=== PATIENT | female | born 1975 | race Caucasian/White ===

== ENCOUNTER 2023-04-02 09:23 | Outpatient (CLI) | payer OTHER, SELFPAY | END 2023-04-02 09:24 | disposition home or self-care (01) | PROVIDERS: PCP Physician Assistant Medical; Referring Provider Physician Assistant Medical; Visit Provider Physician Assistant Medical | DX: R03.0 Elevated blood-pressure reading, without diagnosis of hypertension (principal); R79.89 Other specified abnormal findings of blood chemistry | CPT/HCPCS: 80053; 82088; 84244; 84439; 84443 ==

== ENCOUNTER 2023-04-06 08:16 | Outpatient (CLI) | payer OTHER, SELFPAY | END 2023-04-06 08:17 | disposition home or self-care (01) | LOC: NFLDREF 04-10 09:01 | PROVIDERS: PCP Physician Assistant Medical; Referring Provider Physician Assistant Medical; Visit Provider Physician Assistant Medical | DX: R03.0 Elevated blood-pressure reading, without diagnosis of hypertension (principal); R79.89 Other specified abnormal findings of blood chemistry | CPT/HCPCS: 84244 ==

== ENCOUNTER 2023-04-09 13:50 | Outpatient (CLI) | payer OTHER, SELFPAY ==
--- NOTE | 2023-04-09 14:00 | CRLHL7_ITS ---
For Patients: As a result of the Century Cures Act, medical imaging exams and procedure reports are released immediately into your electronic medical record. You may view this report before your referring provider. If you have questions, please contact your health care provider. INDICATION: HYPERTENSION TECHNIQUE: Grayscale, color Doppler and power Doppler ultrasound of the kidneys and renal arteries performed. COMPARISON: None available FINDINGS: BILATERAL RENAL ARTERY DUPLEX ULTRASOUND ABDOMINAL AORTA: Peak systolic velocity = 144 cm/s. No aortic aneurysm. RIGHT KIDNEY: 9.2 cm in length. There is no hydronephrosis. Peak systolic velocity = 130 cm/second Renal artery to aortic peak systolic velocity ratio = 1.1 Resistive indices: 0.6-0.7 Renal vein = patent LEFT KIDNEY: 10.8 cm in length. There is no hydronephrosis. Peak systolic velocity = 140 cm/second Renal artery to aortic peak systolic velocity ratio = 1.0 Resistive indices: 0.6 Renal vein = patent IMPRESSION: No evidence of significant renal artery stenosis. Dictated by Salty Lloyd MD @ 04/09/2023 4:39:00 PM (Electronically Signed)
== END 2023-04-09 13:51 | disposition home or self-care (01) ==
LOC: US 13:50
PROVIDERS: PCP Physician Assistant Medical; Visit Provider Physician Assistant Medical
DX: I10 Essential (primary) hypertension (principal); R03.0 Elevated blood-pressure reading, without diagnosis of hypertension; R79.89 Other specified abnormal findings of blood chemistry
CPT/HCPCS: 76775; 93975

== ENCOUNTER 2023-07-05 19:31 | Outpatient (CLI) | payer OTHER, SELFPAY ==
--- NOTE | 2023-07-13 09:41 | W.PM.SLEEP ---
Sleep Study Details Details Interpreting Provider: Gaye Date of Sleep Study: 07/05/23 Sleep Study Details: STUDY TYPE:? Home unattended ? BMI:? 25.8 ORDERING PROVIDER:Bhavna Sierra INDICATION:? Concerns about sleep apnea ? SLEEP SUMMARY:? 508.5 minutes monitored RESPIRATORY SUMMARY:? AHI 25.5 Supine AHI 28.7, left lateral 12.2 Low oxygen 82 0.9% of study oxygen less than 90% Snoring 0.3% PERIODIC LIMB MOVEMENTS OF SLEEP:? Not CARDIAC:? Recorded during home study range 46-111, mean 67.1 beats per minute IMPRESSION:? Moderate obstructive sleep apnea with supine position dependency RECOMMENDATION: Treatment options include CPAP AutoSet 4-17, dental appliance and/or airway expansion surgery.
== END 2023-07-05 19:32 | disposition home or self-care (01) ==
LOC: SLEEP 19:33
PROVIDERS: PCP Physician Assistant Medical; Visit Provider Physician Assistant Medical
DX: G47.33 Obstructive sleep apnea (adult) (pediatric) (principal)
CPT/HCPCS: 95806

== ENCOUNTER 2024-08-21 07:41 | Outpatient (CLI) | payer OTHER, SELFPAY ==
--- NOTE | 2024-08-21 09:45 | W.ANESCHARGE ---
Anesthesia Charges Start Date/Time Anesthesia Start Date: 08/21/24 Anesthesia Start Time: 09:26 Stop Date/Time Anesthesia Stop Date: 08/21/24 Anesthesia Stop Time: 10:19
== END 2024-08-21 07:42 | disposition home or self-care (01) ==
LOC: OP CLINIC 07:42
PROVIDERS: PCP Physician Assistant Medical; Visit Provider Surgery
DX: Z12.11 Encounter for screening for malignant neoplasm of colon (principal); D12.3 Benign neoplasm of transverse colon; D12.8 Benign neoplasm of rectum; K64.8 Other hemorrhoids
CPT/HCPCS: 00811; 45381; 45385; 88305; J2704

== ENCOUNTER 2025-03-22 09:28 | Outpatient (CLI) | payer OTHER, SELFPAY ==
--- NOTE | 2025-03-22 10:28 | P.ANES_ITS ---
Anesthesia Charges Start Date/Time Anesthesia Start Date: 03/22/25 Anesthesia Start Time: 09:53 Stop Date/Time Anesthesia Stop Date: 03/22/25 Anesthesia Stop Time: 10:27 Coding CPT Codes CPT Codes: LILIANA LWR INTST SCR COLSC - 68601 ([id number]) P1 - NORMAL HEALTHY PATIENT, QK - QUOTATION CLERK 2-4 CNCRNT ANES PROC, QX - LAND SURVEY TECHNICIAN SVC W/ MED DIRECTION
--- NOTE | 2025-03-22 10:28 | W.ANESCHARGE ---
Anesthesia Charges Start Date/Time Anesthesia Start Date: 03/22/25 Anesthesia Start Time: 09:53 Stop Date/Time Anesthesia Stop Date: 03/22/25 Anesthesia Stop Time: 10:27 Coding CPT Codes CPT Codes: LILIANA LWR INTST SCR COLSC - 83606 ([id number]) P1 - NORMAL HEALTHY PATIENT, QK - STAFF FIELD ENGINEER 2-4 CNCRNT ANES PROC, QX - PANTOGRAPH MACHINE OPERATOR SVC W/ MED DIRECTION
--- NOTE | 2025-03-22 10:52 | P.ANES_ITS ---
Anesthesia Charges Start Date/Time Anesthesia Start Date: 03/22/25 Anesthesia Start Time: 09:53 Stop Date/Time Anesthesia Stop Date: 03/22/25 Anesthesia Stop Time: 10:27 Coding CPT Codes CPT Codes: LILIANA LWR INTST SCR COLSC - 44217 ([id number]) P1 - NORMAL HEALTHY PATIENT, QK - APPAREL MACHINERY INSTRUCTOR 2-4 CNCRNT ANES PROC, QX - ENTERPRISE MOBILITY ARCHITECT SVC W/ MED DIRECTION
--- NOTE | 2025-03-22 10:52 | W.ANESCHARGE ---
Anesthesia Charges Start Date/Time Anesthesia Start Date: 03/22/25 Anesthesia Start Time: 09:53 Stop Date/Time Anesthesia Stop Date: 03/22/25 Anesthesia Stop Time: 10:27 Coding CPT Codes CPT Codes: LILIANA LWR INTST SCR COLSC - 84197 ([id number]) P1 - NORMAL HEALTHY PATIENT, QK - EQUIPMENT TECH 2-4 CNCRNT ANES PROC, QX - JOURNEYMAN PATTERNMAKER SVC W/ MED DIRECTION
== END 2025-03-22 09:29 | disposition home or self-care (01) ==
LOC: OP CLINIC 09:29
PROVIDERS: PCP Physician Assistant Medical; Visit Provider Surgery
DX: Z12.11 Encounter for screening for malignant neoplasm of colon (principal); Z86.0101 Personal history of adenomatous and serrated colon polyps
CPT/HCPCS: 00812; 45378; J2704